=== PATIENT | male | born 1960 | race Caucasian/White ===

== ENCOUNTER 2020-05-04 17:35 | Emergency (ER) | payer BC ==
[~2020-05-04] VITALS: Ht 172.7 cm; Wt 89.5 kg
[2020-05-04 17:35] VITALS: Ht 172.7 cm; Wt 89.5 kg
[2020-05-04] MEDS ORDERED: GLUCOPHAGE500 MG PO (17:39)
[2020-05-04] MEDS ORDERED: JARDIANCE25 MG PO (17:40)
[2020-05-04] MEDS ORDERED: LIPITOR40 MG PO (17:40)
[2020-05-04] MEDS ORDERED: GLIMEPIRIDE1 MG PO (17:41)
[2020-05-04] MEDS ORDERED: OMEPRAZOLE20 M1 PO (17:41)
[2020-05-04] MEDS ORDERED: DIPHEDRYL25 MG PO (17:41)
[2020-05-04] MEDS ORDERED: ZETIA10 MG PO (17:41)
[2020-05-04 18:00] LABS: BASOPHILS 0.3 % (0-2); EOSINOPHILS 1.7 % (0-7); HEMATOCRIT 42.7 % (42.0-54.0); HEMOGLOBIN 14.4 g/dL (13.5-17.5); IMMATURE GRANULOCYTES 0.7 % (0-5); LYMPHOCYTES 27.5 % (15-50); MCH 29.5 pg (26.0-34.0); MCHC 33.7 g/dL (31.0-37.0); MCV 87.5 fL (80.0-100.0); MEAN PLATELET VOLUME 10.2 fL (7.4-10.4); MONOCYTES 7.2 % (2-11); NEUTROPHILS 62.6 % (40-80); PLATELET COUNT 227 10x3/uL (130-400); RBC 4.88 10x6/uL (4.20-6.10); RDW 13.6 % (11.5-14.5); WBC 7.6 10x3/uL (4.8-10.8)
[2020-05-04 18:12] LABS: CALC OSMOLALITY 272 mosm/kg (275-300); CALCIUM 8.4 mg/dL (8.5-10.1); CARBON DIOXIDE 26.8 mmol/L (21.0-32.0); CHLORIDE - SERUM 101 mmol/L (98-107); GLUCOSE 136 mg/dL (74-106); POTASSIUM - SERUM 3.8 mmol/L (3.5-5.1); SODIUM 135 mmol/L (136-145); UREA NITROGEN 15 mg/dL (7-18); eGFR NON AFRICAN AMERICAN 82 mL/min (90-120)
[2020-05-04 18:18] LABS: ALKALINE PHOSPHATASE 109 U/L (30-120); ALT (SGPT) 38 U/L (10-68); BILIRUBIN - TOTAL 1.69 mg/dL (0.2-1.3); PROTEIN - SERUM 7.7 g/dL (6.4-8.2)
[2020-05-04 18:26] LABS: APTT 24.4 SECONDS (22.8-39.4)
[2020-05-04] MEDS ORDERED: HYDROCODON-ACE1 EAC7 PO (18:52)
[2020-05-04 18:58] LABS: INR 0.93 (0.85-1.17); PROTIME 12.4 SECONDS (11.6-15.0)
[2020-05-04 19:06] VITALS: BP 142/93
== END 2020-05-04 19:06 | disposition home or self-care (01) ==
LOC: D.ER 17:35
PROVIDERS: Family Medicine
DX: R07.89 Other chest pain (principal); E11.9 Type 2 diabetes mellitus without complications; Z79.84 Long term (current) use of oral hypoglycemic drugs; W11.XXXA Fall on and from ladder, initial encounter; Y93.9 Activity, unspecified; Y92.9 Unspecified place or not applicable